=== PATIENT | male | born 1995 | race Caucasian/White ===

== ENCOUNTER 2018-10-19 13:59 | Emergency (ER) | payer SELFPAY ==
[~2018-10-19] VITALS: Ht 182.9 cm; Wt 130.0 kg
[2018-10-19] MEDS ORDERED: BACITRACIN ZINC OINT UDPKT TOP ONE (14:45)
[2018-10-19] MEDS ORDERED: CEFAZOLIN 1000MG PREMIX 50 ML IV ONE (14:45)
[2018-10-19] MEDS ORDERED: LIDOCAINE HCL/PF 1% 10 MG/ML 5ML VIAL IJ ONE (14:45)
[2018-10-19] MEDS ORDERED: KETOROLAC 30MG/ML VIAL IV ONE (14:45)
[2018-10-19 16:55] VITALS: BP 127/76
== END 2018-10-19 16:58 | disposition home or self-care (01) ==
LOC: ER 14:19
DX: S61.012A Laceration without foreign body of left thumb without damage to nail, initial encounter (principal); W26.8XXA Contact with other sharp object(s), not elsewhere classified, initial encounter; Y93.89 Activity, other specified; Y92.9 Unspecified place or not applicable
CPT/HCPCS: 73130; 96365; 96375; 99283; J0690; J1885; J3490